=== PATIENT | female | born 1985 | race Caucasian/White ===

== ENCOUNTER 2020-12-29 22:33 | Emergency (ER) | payer MEDICARE, MEDICAID, SELFPAY ==
--- NOTE | ~2020-12-29 | CT_ITS ---
EXAMINATION: CT ABDOMEN AND PELVIS WITHOUT CONTRAST CLINICAL INFORMATION: Right abdominal pain, low back pain COMPARISON: 11/08/2018 TECHNIQUE: Multidetector volumetric imaging was performed from the superior aspect of the liver through the pubic symphysis. Sagittal and coronal reformatted images were obtained on the technologist's workstation. This CT examination was performed using dose optimization techniques as appropriate, variously including the following: *Automated exposure control *Adjustment of mA and/or kV according to patient size (this includes techniques or standardized protocols for targeted exams where dose is matched to indication/reason for exam; i.e. extremities or head) *Use of iterative reconstruction technique DLP: 462 mGy-cm FINDINGS: LUNG BASES: A 3 mm right lower lobe nodule on image 10/92 is unchanged from prior, most consistent with a benign etiology. LIVER, GALLBLADDER, AND BILIARY TREE: The liver is normal in size, shape, and attenuation. No focal hepatic lesion or biliary ductal dilatation is present. The gallbladder is unremarkable. PANCREAS: Unremarkable. SPLEEN: Unremarkable. ADRENAL GLANDS: Unremarkable. KIDNEYS AND URETERS: The kidneys are normal in size, shape, and attenuation. No hydronephrosis, hydroureter, or obstructing calculi seen. Punctate right mid renal calculus noted. No perinephric stranding. BLADDER: Collapsed and not well evaluated. GASTROINTESTINAL TRACT: The small and large bowel are unremarkable. The appendix appears nondilated. No free fluid or free air is seen. ABDOMINAL WALL: No significant hernia is appreciated. LYMPH NODES: No lymphadenopathy is seen, though assessment is limited in the absence of intravenous contrast. VASCULAR: Unremarkable. PELVIC VISCERA: Unremarkable. OSSEOUS STRUCTURES: Unremarkable. CT/CT abdomen pelvis wo con IMPRESSION: No acute findings identified in the abdomen/pelvis. Punctate right renal calculus without hydronephrosis.
[2020-12-29 23:02] VITALS: BP 123/72; PULSE 64; RESP 16; TEMP 36.6; O2SAT 99; BMI 20.5
--- NOTE | 2020-12-29 23:18 | ED.ABDPAIN ---
HPI - Abdominal Pain General Chief Complaint: Abdominal Pain Stated Complaint: Abdominal pain Time Seen by Provider: 12/29/20 22:43 Source: patient Mode of arrival: ambulatory Limitations: no limitations History of Present Illness HPI narrative: This 35-year-old female who had lower abdominal cramping like she was getting her period started about 2 days ago, with associated low back pain. The patient yesterday did get her menstrual period but then today she had worsened low back pain, abdominal cramping, and associated vomiting. She had vomiting this morning times a few episodes and felt better during the middle of the day and then had vomiting again tonight. Patient denies that food made her pain worse. She feels more pain in her upper abdomen right now. She denies any fever. She denies any urinary symptoms. She denies any constipation or diarrhea. She does have history of 3 C sections. She has never had similar symptoms associated with her menstrual period in the past. She does still have her gallbladder. Related Data Previous Rx's Medication Instructions Recorded ondansetron 4 mg disintegrating 4 mg PO Q6H PRN #10 tab 12/30/20 tablet Allergies Allergy/AdvReac Type Severity Reaction Status Date / Time acetaminophen [Vicodin] Allergy Unknown hives Verified 12/29/20 23:01 hydrocodone [Vicodin] Allergy Unknown hives Verified 12/29/20 23:01 Seafood Allergy Mild HIVES Uncoded 11/24/19 15:58 shellfish Allergy Unknown hives Uncoded 12/09/16 00:00 From VICODIN AdvReac Unknown HIVES Uncoded 11/24/19 15:58 Review of Systems Review of Systems Yes all other systems are reviewed and are negative Constitutional: Reports as per HPI and Denies fever(s) Eyes: Reports as per HPI and Reports no additional eye complaints Reports system reviewed and no additional complaints, except as documented, Reports as per HPI, Denies nasal congestion, Denies nasal discharge and Denies sore throat Cardiovascular: Reports as per HPI, Denies chest pain and Denies dyspnea Respiratory: Reports as per HPI, Denies cough and Denies dyspnea Gastrointestinal: Reports as per HPI, Reports abdominal pain, Denies constipation, Denies diarrhea, Reports nausea and Reports vomiting Genitourinary: Reports as per HPI, Denies hematuria, Denies urinary frequency and Denies dysuria Musculoskeletal: Reports back pain and Denies numbness Skin/Breast: Reports as per HPI and Denies rash Reports as per HPI, Denies focal weakness, Denies numbness and Denies Sensory deficit (Neuro) Psychiatric: Reports no additional psychiatric complaints and Reports as per HPI Endocrine: Reports no additional endocrine complaints and Reports as per HPI Hematologic/Lymphatic: Reports no additional hematologic/lymphatic complaints, Reports as per HPI and Reports other (No peripheral edema) Physical Exam Vital Signs: Vital Signs: Last Vital Signs Temp 97.8 F 12/30/20 00:11 Pulse 77 12/30/20 01:45 Resp 16 12/30/20 01:45 BP 100/65 12/30/20 01:45 Pulse Ox 99 12/30/20 01:45 Body Mass Index 20.5 Const: General: cooperative, no acute distress and alert Orientation/consciousness: patient oriented x3 HENMT: Head: Yes normal to inspection Eyes: General: appearance normal, both eyes and all related structures Eyelids: Yes eyelids normal Conjunctivae: conjunctivae normal Pupils: Equal, round and reactive pupils present Neck: Neck: Yes normal visual inspection and Yes supple Chest: Chest palpation & inspection: normal inspection of the chest Resp: Effort & Inspection: normal respiratory effort Auscultation: clear to auscultation bilaterally Cardio: Rate: regular rate Rhythm: regular rhythm Heart sounds: S1 normal heart sound present, S2 normal heart sound present, no gallops, no murmurs and no rubs GI: Palpation (GI): Soft to palpation, Tenderness to palpation present (GI) (Right upper quadrant and epigastric, no lower abdominal tenderness) and Other GI palpation findings present (Non-distended) Auscultation: normal bowel sounds Skin: General skin exam: no rashes or lesions noted Neuro: General: patient oriented x3, no focal motor deficits and CN's II-XI intact bilaterally Cranial nerves: Yes Equal, round and reactive pupils present Cognition (Neuro): normal cognition Motor exam (neuro): 5/5 motor strength present throughout Sensory Exam: No Sensory deficit (Neuro) Extrem: General: Yes normal to inspection and Yes no pedal edema Psych: Appearance: grossly normal Affect: normal affect MDM - Abdominal Pain MDM Narrative Medical decision making narrative: 35-year-old female with cramping in her lower abdomen associated with her menstrual period, with associated low back pain and vomiting. Patient does not generally had the symptoms with her menstrual period. CBC and chemistry panel, urinalysis negative (urine positive for nitrates but otherwise without sign of infection, and the patient on prior urinalyses usually test positive for nitrates). CT scan of the abdomen pelvis showed no evidence of appendicitis or any acute biliary pathology. Patient had improvement in her symptoms with Toradol and Zofran IV. Patient was hydrated with normal saline 1 L IV. The patient did have some nausea prior to discharge and was treated with Reglan 10 mg IV. Lab Data Attestation: I reviewed the patient's lab results. Result diagrams: 12/29/20 23:35 12/29/20 23:35 Labs: Lab Results 12/29/20 12/29/20 12/30/20 Range/Units 23:35 23:35 00:37 WBC 6.6 (4.8-10.8) X10*3/uL RBC 4.11 L (4.20-5.50) X10*6/uL Hgb 12.9 (12.0-16.0) g/dl Hct 37.6 (37-47) % MCV 91.5 (80-98) fL MCH 31.4 (27.0-33.0) pg MCHC 34.3 (31.0-35.0) g/dl RDW 12.9 (11.0-16.0) % Plt Count 257 (160-400) X10*3/uL MPV 10.1 (9.4-12.3) fL Immature Gran % (Auto) 0.2 (0.0-0.4) % Neut % (Auto) 64.6 (45-73) % Lymph % (Auto) 24.3 (20-40) % Mitchell % (Auto) 7.5 (2-11) % Eos % (Auto) 2.6 (0-4) % Baso % (Auto) 0.8 (0-2) % Lymph # (Auto) 1.6 (1.2-4.9) X10*3/uL Mitchell # (Auto) 0.5 (0.1-1.2) X10*3/uL Eos # (Auto) 0.2 (0.0-0.4) X10*3/uL Baso # (Auto) 0.1 (0.0-0.2) X10*3/uL Abs Immat Gran (auto) 0.01 (0.00-0.03) X10*3/uL Absolute Neuts (auto) 4.3 (2.0-8.3) X10*3/uL Absolute Nucleated RBC 0.000 (0.0-0.012) X10*3/uL Nucleated RBC % (auto) 0.0 (0.0-0.2) /100WBC Sodium 136 (135-145) mmol/L Potassium 3.8 (3.3-5.1) mmol/L Chloride 102 (96-108) mmol/L Carbon Dioxide 27 (22-29) mmol/L Anion Gap 11 L (12-20) BUN 10 (9-16) mg/dL Creatinine 0.73 (0.5-1.4) mg/dL Estim Creat Clear Calc 105.9 Estimated GFR > 60 Random Glucose 117 H (60-115) mg/dL Calcium 9.2 (8.4-10.2) mg/dL Total Bilirubin 0.3 (0.0-1.0) mg/dL AST 13 (5-31) U/L ALT 7 (0-31) U/L Alkaline Phosphatase 55 (39-117) U/L Total Protein 7.0 (6.5-8.0) g/dL Albumin 4.2 (3.5-5.0) g/dL Lipase 24 (8-78) U/L Beta HCG, Quant < 2 mIU/mL Urine Color YELLOW Urine Appearance CLEAR Urine pH 6.5 (5.0-8.0) Ur Specific [place] 1.020 (1.005-1.025) Urine Protein TRACE (NEG-TRACE) MG/DL Urine Glucose (UA) NEG (NEG) MG/DL Urine Ketones NEG (NEG) MG/DL Urine Blood TRACE (NEG) Urine Nitrite POS H (NEG) Ur Leukocyte Esterase NEG (NEG) Urine RBC 1-4 (0) /HPF Urine WBC 1-4 (0-4) /HPF Ur Squamous Epith Cells TRACE /LPF Urine Bacteria 3+ /LPF Urine Test (NEGATIVE) 12/30/20 Range/Units 00:37 WBC (4.8-10.8) X10*3/uL RBC (4.20-5.50) X10*6/uL Hgb (12.0-16.0) g/dl Hct (37-47) % MCV (80-98) fL MCH (27.0-33.0) pg MCHC (31.0-35.0) g/dl RDW (11.0-16.0) % Plt Count (160-400) X10*3/uL MPV (9.4-12.3) fL Immature Gran % (Auto) (0.0-0.4) % Neut % (Auto) (45-73) % Lymph % (Auto) (20-40) % Mitchell % (Auto) (2-11) % Eos % (Auto) (0-4) % Baso % (Auto) (0-2) % Lymph # (Auto) (1.2-4.9) X10*3/uL Mitchell # (Auto) (0.1-1.2) X10*3/uL Eos # (Auto) (0.0-0.4) X10*3/uL Baso # (Auto) (0.0-0.2) X10*3/uL Abs Immat Gran (auto) (0.00-0.03) X10*3/uL Absolute Neuts (auto) (2.0-8.3) X10*3/uL Absolute Nucleated RBC (0.0-0.012) X10*3/uL Nucleated RBC % (auto) (0.0-0.2) /100WBC Sodium (135-145) mmol/L Potassium (3.3-5.1) mmol/L Chloride (96-108) mmol/L Carbon Dioxide (22-29) mmol/L Anion Gap (12-20) BUN (9-16) mg/dL Creatinine (0.5-1.4) mg/dL Estim Creat Clear Calc Estimated GFR Random Glucose (60-115) mg/dL Calcium (8.4-10.2) mg/dL Total Bilirubin (0.0-1.0) mg/dL AST (5-31) U/L ALT (0-31) U/L Alkaline Phosphatase (39-117) U/L Total Protein (6.5-8.0) g/dL Albumin (3.5-5.0) g/dL Lipase (8-78) U/L Beta HCG, Quant mIU/mL Urine Color Urine Appearance Urine pH (5.0-8.0) Ur Specific [place] (1.005-1.025) Urine Protein (NEG-TRACE) MG/DL Urine Glucose (UA) (NEG) MG/DL Urine Ketones (NEG) MG/DL Urine Blood (NEG) Urine Nitrite (NEG) Ur Leukocyte Esterase (NEG) Urine RBC (0) /HPF Urine WBC (0-4) /HPF Ur Squamous Epith Cells /LPF Urine Bacteria /LPF Urine Test NEGATIVE (NEGATIVE) Imaging Data CT the abdomen and pelvis: Radiologist's impression: IMPRESSION: No acute findings identified in the abdomen/pelvis. Punctate right renal calculus without hydronephrosis. Discharge Plan Discharge Clinical Impression: Abdominal pain, Vomiting Patient Disposition: Home, Self-Care Instructions: Acute Nausea and Vomiting (ED) Additional Instructions: Use the ondansetron as prescribed for nausea. Drink clear liquids loaded time. Return for any worsened symptoms such as progressively worse abdominal pain, fever, intractable vomiting. Follow-up with primary care physician as needed Prescriptions: New ondansetron 4 mg tablet,disintegrating 4 mg PO Q6H PRN (Reason: nausea and vomiting) Qty: 10 RF: 0 PMFSH Past Medical History Medical History (Updated 12/30/20 @ 01:55 by Everett Love MD) Asthma Social History Social History Advance Directives: No Advance Directives Information Provided: Yes
[2020-12-29 23:38] LABS: MANUAL DIFF FLAG NO
[2020-12-29] MEDS: ondansetron HCL 4 MG/2 ML VIAL IVPUSH (23:38)
[2020-12-29] MEDS: Ketorolac Tromethamine 15 MG/ML VIAL IVPUSH (23:38)
[2020-12-29] MEDS: 0.9 % Sodium Chloride 1,000 ML 999 ML IV (23:38)
[2020-12-29 23:40] LABS: Basophils Absolute Auto 0.1 X10*3/uL (0.0-0.2); Basophils Percent Auto 0.8 % (0-2); Eosinophils Absolute Auto 0.2 X10*3/uL (0.0-0.4); Eosinophils Percent Auto 2.6 % (0-4); Hematocrit 37.6 % (37-47); Hemoglobin 12.9 g/dl (12.0-16.0); Imm Gran Abs Auto 0.01 X10*3/uL (0.00-0.03); Imm Gran Pct Auto 0.2 % (0.0-0.4); Lymphocytes Absolute Auto 1.6 X10*3/uL (1.2-4.9); Lymphocytes Percent Auto 24.3 % (20-40); Mean Corpuscular HGB Conc 34.3 g/dl (31.0-35.0); Mean Corpuscular Hemoglobin 31.4 pg (27.0-33.0); Mean Corpuscular Volume 91.5 fL (80-98); Mean Platelet Volume 10.1 fL (9.4-12.3); Monocytes Absolute Auto 0.5 X10*3/uL (0.1-1.2); Monocytes Percent Auto 7.5 % (2-11); Neutrophils Absolute Auto 4.3 X10*3/uL (2.0-8.3); Neutrophils Percent Auto 64.6 % (45-73); Platelet Count 257 X10*3/uL (160-400); Red Blood Count 4.11 X10*6/uL (4.20-5.50); Red Cell Distribution Width 12.9 % (11.0-16.0); White Blood Count 6.6 X10*3/uL (4.8-10.8)
[2020-12-29 23:58] LABS: Alanine Aminotransferase 7 U/L (0-31); Albumin Level 4.2 g/dL (3.5-5.0); Alkaline Phosphatase 55 U/L (39-117); Anion Gap 11 (12-20); Aspartate Amino Transferase 13 U/L (5-31); Bilirubin Total 0.3 mg/dL (0.0-1.0); Blood Urea Nitrogen 10 mg/dL (9-16); Calcium 9.2 mg/dL (8.4-10.2); Carbon Dioxide 27 mmol/L (22-29); Chloride 102 mmol/L (96-108); Creatinine Clr Calc Pharmacy 105.9; Estimated Glomerular Filt Rate > 60; Glucose Random 117 mg/dL (60-115); Lipase 24 U/L (8-78); Potassium 3.8 mmol/L (3.3-5.1); Sodium 136 mmol/L (135-145)
[2020-12-30 00:11] VITALS: BP 101/66; PULSE 57; RESP 18; TEMP 36.6; O2SAT 100
--- NOTE | 2020-12-30 00:29 | PC.NURSE ---
PT UNABLE TO PROVIDE URINE SAMPLE, HCG QUANT ADDED TO BLOOD WORK. PT ADMITS TO SMOKING MARIJUANA DAILY, PT DENIES EVER EXPERIENCING CYCLICAL VOMITING.
[2020-12-30 00:52] LABS: HCG Quantitative < 2 mIU/mL
[2020-12-30 00:54] LABS: Appearance Urine CLEAR; Color Urine YELLOW; Glucose Urine UA NEG (NEG); Leukocyte Esterase Urine NEG (NEG); Nitrite Urine POS (NEG); PH 6.5 (5.0-8.0); UACC Culture Trigger YES; Urine Blood TRACE (NEG); Urine Ketones NEG (NEG); Urine Protein TRACE MG/DL (NEG-TRACE)
[2020-12-30 00:57] LABS: UPreg QC Valid YES; Urine Pregnancy NEGATIVE (NEGATIVE)
[2020-12-30 01:05] LABS: Bacteria Urine 3+ /LPF; Squamous Epithelial Cell Urine TRACE /LPF
--- NOTE | 2020-12-30 01:42 | PC.NURSE ---
PT HAS BEEN SLEEPING FOR THE PAST HOUR FOLLOWING CT SCAN. SHE REPORTED THAT HER PAIN LEVEL DECREASED TO 6/10 FOLLOWING TORADOL. PT HAS NOT EXPERIENCED ANY VOMITING SINCE ARRIVAL TO HER ROOM IN ER.
[2020-12-30 01:45] VITALS: BP 100/65; PULSE 77; RESP 16; O2SAT 99
[2020-12-30] MEDS: Metoclopramide HCl 10 MG/2 ML VIAL IVPUSH (01:58)
== END 2020-12-30 02:40 | disposition home or self-care (01) ==
PROVIDERS: Emergency Provider Emergency Medicine; PCP Internal Medicine
DX: R10.9 Unspecified abdominal pain (principal); R11.10 Vomiting, unspecified; M54.50 Low back pain, unspecified; Z79.899 Other long term (current) drug therapy
CPT/HCPCS: 36415; 74176; 80053; 81001; 81025; 83690; 84702; 85025; 87086; 87088; 87186; 96361; 96374; 96375; 99284; J1885; J2405; J2765

== ENCOUNTER 2021-12-17 14:00 | Emergency (ER) | payer OTHER, SELFPAY ==
[2021-12-17 14:57] VITALS: BP 121/76; PULSE 78; RESP 18; TEMP 36.7; O2SAT 99; BMI 21.2
--- NOTE | 2021-12-17 20:12 | ED.WOUNDLAC ---
HPI - Wound/Laceration General Chief Complaint: Skin/Abscess/Foreign Body Stated Complaint: poked with a needle at work Time Seen by Provider: 12/17/21 20:01 Source: patient Mode of arrival: ambulatory Limitations: no limitations History of Present Illness HPI narrative: 36-year-old female presents for evaluation after being stuck by its hypodermic needle that was inside of trash container at her work. She washed her hands, and tried express fluid out of the injury. She does not report any other symptoms at this time. Onset (ago): hour(s) (Within the hour of arrival) Extremity Location: left: hand (Fourth finger) Place: work Patient tetanus UTD: Yes Context: accidental Associated symptoms: pain Related Data Previous Rx's Medication Instructions Recorded ondansetron 4 mg disintegrating 4 mg PO Q6H PRN nausea and 12/30/20 tablet vomiting #10 tabs nitrofurantoin 100 mg PO Q12H 7 days #14 caps 01/03/21 monohydrate/macrocrystals 100 mg capsule (Macrobid) Allergies Allergy/AdvReac Type Severity Reaction Status Date / Time acetaminophen [Vicodin] Allergy Unknown hives Verified 12/29/20 23:01 hydrocodone [Vicodin] Allergy Unknown hives Verified 12/29/20 23:01 Seafood Allergy Mild HIVES Uncoded 11/24/19 15:58 shellfish Allergy Unknown hives Uncoded 12/09/16 00:00 From VICODIN AdvReac Unknown HIVES Uncoded 11/24/19 15:58 Review of Systems Review of Systems: Constitutional: No Fever, No Chills ENT/Mouth: No Ear Pain, No Hoarseness, No sore throat Eyes: No Eye Pain, No Swelling, No Redness, No Foreign Body Cardiovascular: No Chest Pain, No SOB Respiratory: No Cough, No Dyspnea Gastrointestinal: No Nausea, No Vomiting, No Diarrhea, No abdominal Pain Genitourinary: No Dysuria, No Hematuria Musculoskeletal: positive 4th finger pain, No Myalgias, No Joint Swelling Skin: No Skin lacerations, No rash Neuro: No Weakness, No Numbness, No Paresthesias, No Loss of Consciousness, No Dizziness, No Headache Psych: No Anxiety/Panic, No Depression Heme/Lymph: no easy bruising, no Lymphadenopathy Endocrine: No Polyuria, No Polydipsia Yes all other systems are reviewed and are negative PMFSH Past Medical History Attestation statement: The following information was validated with the patient. Source: old records reviewed Medical History Asthma Social History Social History Advance Directives: No Advance Directives Information Provided: No Patient : No Physical Exam Vital Signs: Vital Signs: Last Vital Signs Temp 98.0 F 12/17/21 21:15 Pulse 82 12/17/21 21:15 Resp 14 12/17/21 21:15 BP 102/67 12/17/21 21:15 Pulse Ox 98 12/17/21 21:15 O2 Del Method 12/17/21 21:15 BMI result Body Mass Index 21.2 Appearance: Alert. Oriented X3. No acute distress. Eyes: Pupils equal, round and reactive to light. ENT: Pharynx normal. Neck: Normal inspection. Neck supple. CVS: Normal heart rate and rhythm. Pulses normal. Respiratory: No respiratory distress. Breath sounds normal. Abdomen: Soft and nontender. Skin: Needle puncture to palmar aspect of 4th left finger between MCP and PIP. Skin warm and dry. Normal skin color. Normal skin turgor. Extremities: No lower extremity edema. Gait well-balanced well coordinated. Neuro: No motor deficit. No sensory deficit. Cranial nerves 2-12 intact. Course Course Course Narrative: 36-year-old female presents for needlestick injury while at work. She was cleaning out the baskets, and was stuck by a insulin syringe. She washed her hands and tried express blood from the site. She is concerned about exposure. I did discuss the risks of exposure, and plan is for prophylactic kit and testing. Patient has been in the emergency department waiting room for 7 hours. 20:15 patient verbalized understanding of and agrees to plan of care discharge home. Verbalized understanding of need to follow up with [facility] and importance of prophylaxis kit. 20:47 patient does not want wait for prophylaxis kit. And does not want labs drawn. Patient does understand the risks. Patient will be discharged home. MDM - Wound/Laceration MDM Narrative Medical decision making narrative: Needlestick, blood borne pathogen exposure Medical Records Attestation: I reviewed the patient's medical records. Discharge Plan Discharge Clinical Impression: Exposure to blood-borne pathogen Patient Disposition: Home, Self-Care Instructions: Body Substance Exposure (ED), Contact Precautions (ED) Additional Instructions: You were evaluated for blood borne pathogen exposure by a needle stick while at work, [employer] in [place]. Please take exposure prophylaxis medications as directed. We will follow up with your lab results. Please follow up with [facility]. Thank you for choosing this emergency department for evaluation. Please follow-up with primary care physician as needed. Return to the emergency department for any new, concerning, or worsening symptoms. Prescriptions: No Action ondansetron 4 mg tablet,disintegrating 4 mg PO Q6H PRN (Reason: nausea and vomiting) Qty: 10 0RF nitrofurantoin monohyd/m-cryst [Macrobid] 100 mg capsule 100 mg PO Q12H 7 Days Qty: 14 0RF Rx Instructions: must administer with a meal/food Referrals: [facility] [Provider Group] - 3 days (post exposure evaluation) Interventions: ED Discharge Assessment Last Done: 12/17/21 21:22 Discharge Date/Time: 12/17/21 21:22
[2021-12-17] MEDS: Post Exposure Medication Kit 1 KIT PO (21:11)
[2021-12-17 21:15] VITALS: BP 102/67; PULSE 82; RESP 14; TEMP 36.7; O2SAT 98
--- NOTE | 2021-12-17 21:19 | PC.NURSE ---
pt aox4. Breaths are even and unlabored. Regular heart sounds. Abd soft and non tender. Skin warm pink and dry. Refuses lab work and urine at this time. PEP Kit provided to pt with instructions. Pt advised to follow up with [facility] within the next 3 days. Pt verbalizes understanding. Discharge instructions provided.
== END 2021-12-17 21:22 | disposition home or self-care (01) ==
PROVIDERS: Emergency Provider Emergency Medicine Emergency Medical Services
DX: S61.235A Puncture wound without foreign body of left ring finger without damage to nail, initial encounter (principal); Y28.9XXA Contact with unspecified sharp object, undetermined intent, initial encounter; Y93.9 Activity, unspecified; Y92.9 Unspecified place or not applicable; Y99.0 Civilian activity done for income or pay; Z20.828 Contact with and (suspected) exposure to other viral communicable diseases; Z79.899 Other long term (current) drug therapy
CPT/HCPCS: 99283; 99284

== ENCOUNTER 2023-02-26 19:56 | Emergency (ER) | payer MEDICARE, MEDICAID, SELFPAY ==
[2023-02-26 20:40] VITALS: BP 111/72; PULSE 93; RESP 18; TEMP 36.5; O2SAT 99; BMI 22.0
--- NOTE | 2023-02-26 20:40 | ED_ITS ---
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 Admits rinse under cool water and applied burn ointment. Denies injury to the area, fever/chills, numbness/tingling MD Complaint: burn Related Data Previous Rx's Medication Instructions Recorded ondansetron 4 mg disintegrating 4 mg PO Q6H PRN nausea and 12/30/20 tablet vomiting #10 tabs nitrofurantoin 100 mg PO Q12H 7 days #14 caps 01/03/21 monohydrate/macrocrystals 100 mg capsule (Macrobid) bacitracin 500 unit/gram topical 1 appl topical BID #30 grams 02/26/23 ointment Allergies Allergy/AdvReac Type Severity Reaction Status Date / Time hydrocodone [Vicodin] Allergy Unknown hives Verified 02/26/23 20:39 Seafood Allergy Mild HIVES Uncoded 11/24/19 15:58 shellfish Allergy Unknown hives Uncoded 12/09/16 00:00 From VICODIN AdvReac Unknown HIVES Uncoded 11/24/19 15:58 Review of Systems Review of Systems: Constitutional: No Fever, No Chills ENT/Mouth: No Ear Pain, No Nasal Congestion, No sore throat, No Rhinorrhea, No Swallowing Difficulty Cardiovascular: No Chest Pain, No SOB Respiratory: No Cough, No Sputum, No Wheezing Gastrointestinal: No Nausea, No Vomiting, No Abdominal pain Musculoskeletal: No joint pain, No Myalgias Skin: +Skin Lesions, No rash Neuro: No Weakness Yes all other systems are reviewed and are negative Constitutional: Constitutional: Reports as per [facility] Past Medical History Attestation statement: The following information was validated with the patient. Source: old records reviewed Medical History Asthma Physical Exam Vital Signs: Vital Signs: Last Vital Signs Temp 97.7 F 12/21/23 20:40 Pulse 93 02/26/23 20:40 Resp 18 02/26/23 20:40 BP 111/72 02/26/23 20:40 Pulse Ox 99 02/26/23 20:40 O2 Del Method Room Air 02/26/23 20:40 BMI result Body Mass Index 22.0 Const: General: cooperative, healthy appearing and no acute distress Orientation/consciousness: patient oriented x3 Limitations: no limitations HEENT: Head: Yes normal to inspection and Yes atraumatic Ears: hearing grossly normal bilaterally General nose exam: Normal external nose present Face and sinus: Yes normal facial exam Eyes: General: appearance normal, both eyes and all related structures EOM: EOMs intact bilaterally Neck: Neck: Yes normal visual inspection and Yes no meningeal signs Resp: Effort & Inspection: normal respiratory effort and no respiratory distress Cardio: Rate: regular rate Skin: Other: + very mild superficial erythema noted t o right hand/wrist volar aspect. No c lear demarcation, not circumferential, no blisters, no sloughing. 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 On exam vital signs stable, NAD, nontoxic appearing, physical exam as noted above. No evidence of deeper wound/blistery or infection/cellulitis. Plan: Recommended bacitracin topical twice daily and PCP follow-up Please refer to course for remaining clinical decision making, interpretation of labs/imaging results, and discussions with consultants and/or family members. Results discussed with patient including worrisome signs and symptoms and strict return precautions, and when to return to the emergency department. They verbalized understanding and feel safe for discharge at this time.[id number] Differential Diagnosis Differential Diagnoses: The differential diagnosis associated with the presentation includes As above External Record Review External record reviewed: Inpatient record, Office record, Outpatient record, Prior outpatient labs, Prior outpatient radiology, Primary care record and Outside ED record Tests considered The following testing was considered but not selected: As above Prescription Management I considered prescription management with: Pain Medication and Antibiotic Discharge Plan Discharge Clinical Impression: Superficial burn Patient Disposition: Home, Self-Care Instructions: Superficial Burn (DC) Additional Instructions: Apply topical bacitracin Ice. Please put barrier between ice and skin If blisters keep blisters intact, do not pop If begins look infected, is red there is drainage returns black or has pus return to the ED Prescriptions: New bacitracin 500 unit/gram ointment 1 appl topical BID Qty: 30 0RF No Action ondansetron 4 mg tablet,disintegrating 4 mg PO Q6H PRN (Reason: nausea and vomiting) Qty: 10 0RF nitrofurantoin monohyd/m-cryst [Macrobid] 100 mg capsule 100 mg PO Q12H 7 Days Qty: 14 0RF Rx Instructions: must administer with a meal/food Referrals: [facility] [Outside] Physician,Unknown J [Primary Care Provider] -
== END 2023-02-26 21:10 | disposition home or self-care (01) ==
LOC: HO.ED 20:50
PROVIDERS: Emergency Provider Emergency Medicine
DX: T23.101A Burn of first degree of right hand, unspecified site, initial encounter (principal); T31.0 Burns involving less than 10% of body surface; X12.XXXA Contact with other hot fluids, initial encounter; Y93.9 Activity, unspecified; Y92.9 Unspecified place or not applicable; Y99.9 Unspecified external cause status
CPT/HCPCS: 99282; 99283

== ENCOUNTER 2023-06-05 | Emergency (ER) | payer MEDICARE, MEDICAID, SELFPAY ==
[2023-06-05 00:11] VITALS: BP 112/63; PULSE 74; RESP 15; TEMP 36.7; O2SAT 98; BMI 21.3
== END 2023-06-05 03:12 | disposition left against medical advice (07) ==
PROVIDERS: Emergency Provider Emergency Medicine
DX: K08.89 Other specified disorders of teeth and supporting structures (principal)
CPT/HCPCS: 99281

== ENCOUNTER 2023-06-18 20:58 | Emergency (ER) | payer MEDICARE, MEDICAID, SELFPAY ==
[2023-06-18 21:02] VITALS: BP 115/83; PULSE 63; RESP 18; TEMP 36.2; O2SAT 99; BMI 24.3
[2023-06-18 21:33] VITALS: BP 120/72; PULSE 59; RESP 18; TEMP 36.6; O2SAT 99
[2023-06-18] MEDS: oxyCODONE HCl Immed Release 5 MG TABLET 10 MG PO (23:00)
[2023-06-18] MEDS: Clindamycin HCL 300 MG CAPSULE PO (23:00)
[2023-06-18 23:03] VITALS: BP 120/72; PULSE 59; RESP 18; TEMP 36.6; O2SAT 99
--- NOTE | 2023-06-18 23:06 | ED_ITS ---
HPI - Dental/Oral General Chief complaint: Dental/Oral Stated complaint: toothache Time Seen by Provider: 06/18/23 22:26 Source: patient Mode of arrival: ambulatory Limitations: no limitations History of Present Illness HPI Narrative: Patient with diffuse dental caries with multiple teeth loss been having pain and swelling of the right lower jaw area and cheek treated with antibiotics which she finished yesterday swelling has improved now she noticed pain in the tooth area no fever does have cold sensitivity MD Complaint: tooth pain Location: Tooth # (30) Related Data Previous Rx's ?Medication ?Instructions ?Recorded ondansetron 4 mg disintegrating 4 mg PO Q6H PRN nausea and 12/30/20 tablet vomiting #10 tabs nitrofurantoin 100 mg PO Q12H 7 days #14 caps 01/03/21 monohydrate/macrocrystals 100 mg capsule (Macrobid) bacitracin 500 unit/gram topical 1 appl topical BID #30 grams 02/26/23 ointment clindamycin HCl 300 mg capsule 300 mg PO TID #30 caps 06/18/23 oxycodone 5 mg tablet 5 mg PO Q6H PRN pain #20 tabs 06/18/23 Allergies Allergy/AdvReac Type Severity Reaction Status Date / Time hydrocodone [Vicodin] Allergy Unknown hives Verified 06/18/23 21:05 Seafood Allergy Mild HIVES Uncoded 06/05/23 00:11 shellfish Allergy Unknown hives Uncoded 06/05/23 00:11 From VICODIN AdvReac Unknown HIVES Uncoded 06/05/23 00:11 Review of Systems 2 Review of Systems: Yes all other systems are reviewed and are negative PMFSH Past Medical History Medical History Asthma Social History Social History Advance Directives: No Advance Directives Information Provided: No Physical Exam 2 Vital Signs: Vital Signs: Last Vital Signs Temp 97.9 F 06/18/23 23:03 Pulse 59 06/18/23 23:03 Resp 18 06/18/23 23:03 BP 120/72 06/18/23 23:03 Pulse Ox 99 06/18/23 23:03 O2 Del Method Room Air 06/18/23 23:03 BMI result Body Mass Index 24.3 HEENT: Teeth image: 1. Loss of dentin pulp visible and tender no gum swelling no palpable fluctuant mass Medications Administered Discontinued Medications Generic Name Dose Route Start Last Admin Trade Name Freq PRN Reason Stop Dose Admin Clindamycin HCl 300 mg 06/18/23 22:53 06/18/23 23:00 Clindamycin Hcl 300 Mg Capsule PO 06/18/23 22:54 300 mg ONCE ONE Administration Oxycodone HCl 10 mg 06/18/23 22:53 06/18/23 23:00 Oxycodone Hcl Immed Release 5 Mg Tablet PO 06/18/23 22:54 10 mg ONCE ONE Administration Medical Decision Making Medical Decision Making [facility] Narrative: Patient with dental pulpitis of right lower molar will prescribe clindamycin advised to follow with dentist Differential Diagnosis Differential Diagnoses: The differential diagnosis associated with the presentation includes Dental abscess/pulpitis Discharge Plan Discharge Clinical Impression: Dental caries Patient Disposition: Home, Self-Care Instructions: Toothache (ED) Additional Instructions: Antibiotic as prescribed Pain medication as prescribed See your dentist for further management Prescriptions: New clindamycin HCl 300 mg capsule 300 mg PO TID Qty: 30 0RF oxycodone 5 mg tablet 5 mg PO Q6H PRN (Reason: pain) Qty: 20 0RF Rx Instructions: Partial Fill upon patient request. No Action ondansetron 4 mg tablet,disintegrating 4 mg PO Q6H PRN (Reason: nausea and vomiting) Qty: 10 0RF nitrofurantoin monohyd/m-cryst [Macrobid] 100 mg capsule 100 mg PO Q12H 7 Days Qty: 14 0RF Rx Instructions: must administer with a meal/food bacitracin 500 unit/gram ointment 1 appl topical BID Qty: 30 0RF Stand Alone Forms: Work/School Release Interventions: ED Discharge Assessment Last Done: 06/18/23 23:03 Discharge Date/Time: 06/18/23 23:03 Print Language: Yi
== END 2023-06-18 23:03 | disposition home or self-care (01) ==
PROVIDERS: Emergency Provider Internal Medicine
DX: K02.9 Dental caries, unspecified (principal); K08.89 Other specified disorders of teeth and supporting structures; Z79.899 Other long term (current) drug therapy
CPT/HCPCS: 99283